=== PATIENT | female | born 1980 | race Caucasian/White ===

== ENCOUNTER 2016-06-20 09:54 | Outpatient (CLI) | payer OTHER ==
[2016-06-20 10:42] LABS: Free T4 (Free Thyroxine) 0.97 ng/dL (0.70-1.48); Thyroid Stimulating Hormone 0.9388 uIU/mL (0.35-4.94)
== END 2016-06-20 09:55 | disposition home or self-care (01) ==
LOC: MADLABBHPM 09:54
PROVIDERS: ATTEND Family Medicine
DX: E05.90 Thyrotoxicosis, unspecified without thyrotoxic crisis or storm (principal)
CPT/HCPCS: 36415; 84439; 84443

== ENCOUNTER 2016-09-12 10:33 | Outpatient (CLI) | payer OTHER ==
--- NOTE | 2016-09-12 12:53 | ULT ---
ABDOMINAL SONOGRAM HISTORY: Upper abdomen pain. FINDINGS: A fold is apparent within the gallbladder. No stones are apparent. There is no gallbladder wall th ickening. The patient was reportedly tender over the gallbladder fossa at the time of the exam. The liver is unremarkable without focal mass or intrahepatic biliary dilatation. The common duct is 0.3 cm in diameter. The spleen and the visualized portions of the abdominal aorta, the IVC, the pa ncreas, and the kidneys have a normal appearance. IMPRESSION: No significant abnormalities are demonstrated. POS: NELLIE
[2016-09-14 22:42] LABS: Chlamydia by PCR Not Detected (NotDetected); GC by PCR Not Detected (NotDetected)
== END 2016-09-12 10:34 | disposition home or self-care (01) ==
LOC: MADLABBHPM 10:33
PROVIDERS: ATTEND Family Medicine
DX: R10.30 Lower abdominal pain, unspecified (principal)
CPT/HCPCS: 36415; 76700; 87480; 87491; 87510; 87591; 87660

== ENCOUNTER 2016-11-14 09:35 | Outpatient (CLI) | payer OTHER ==
[2016-11-14 10:32] LABS: #Eosinphils 0.2 thou/uL (0.0-0.7); #Lymphocytes 1.4 thou/uL (1.20-3.40); #Monocytes 0.4 thou/uL (0.11-0.59); #Neutrophils 5.3 thou/uL (1.40-6.50); %Basophils 0.3 % (0.0-1.0); %Eosinophils 2.6 % (0.0-10.0); %Lymphocytes 18.9 % (21.0-51.0); %Neutrophils 73.1 % (42.0-75.0); Hemoglobin 12.4 g/dL (12.0-16.0); Mean Corpuscular Hemoglobin 28.5 pg (27.0-31.0); Mean Corpuscular Volume 86.3 fl (81.0-99.0); Platelet Count 310 thou/uL (130-400); RBC Distribution Width 13.5 % (11.5-14.5); Red Blood Cell (RBC) Count 4.36 mill/uL (4.20-5.40); White Blood Cell (WBC) Count 7.2 thou/uL (4.8-10.8)
[2016-11-14 11:46] LABS: Hemoglobin A1c 5.2 % (4.0-6.0)
[2016-11-14 13:14] LABS: Free T4 (Free Thyroxine) 0.99 ng/dL (0.70-1.48); Thyroid Stimulating Hormone 1.9799 uIU/mL (0.35-4.94)
--- NOTE | 2016-11-14 13:27 | RAD ---
RADIOGRAPH ABDOMEN ONE VIEW SUPINE: Date: 11-14-16 History: 36-year-old female with epigastric pain. FINDINGS: Bowel gas pattern is normal. Moderate amount of stool in the right hemicolon. No signs of organomega ly. No interval change since 09-12-13. IMPRESSION: Normal bowel gas pattern. POS: PAGE
[2016-11-17 20:11] LABS: H. pylori IgA ABS Less than 9.0 units (0.0-8.9); H. pylori IgG ABS 2.8 U/mL (0.0-0.8); H. pylori IgM ABS Less than 9.0 units (0.0-8.9)
== END 2016-11-14 09:36 | disposition home or self-care (01) ==
LOC: MADLABBHPM 09:35
PROVIDERS: ATTEND Family Medicine
DX: R10.13 Epigastric pain (principal); F32.9 Major depressive disorder, single episode, unspecified; E05.90 Thyrotoxicosis, unspecified without thyrotoxic crisis or storm
CPT/HCPCS: 36415; 74000; 83036; 84439; 84443; 85025

== ENCOUNTER 2017-10-09 16:29 | Outpatient (CLI) | payer OTHER ==
--- NOTE | 2017-10-09 17:27 | RAD ---
TWO VIEWS RIGHT HIP 10/09/17 COMPARISON: None. HISTORY: Right hip pain for one week. FINDINGS: Two views right hip shows no evidence of acute fracture or dislocation. No degenerative changes are s een. No soft tissue swelling is present. IMPRESSION: No evidence of acute osseous abnormality. POS: NELLIE
== END 2017-10-09 16:30 | disposition home or self-care (01) ==
LOC: MADRAD 16:29
PROVIDERS: ATTEND Family Medicine
DX: M25.551 Pain in right hip (principal)

== ENCOUNTER 2019-03-18 07:57 | Emergency (ER) | payer OTHER ==
[2019-03-18] MEDS ORDERED: Sodium Chloride 0.9% 1,000 ML ONE (08:58)
--- NOTE | 2019-03-18 09:09 | RAD ---
XR Chest Pa Lat STANDARD HISTORY: Cough COMPARISON: 10/26/2017 FINDINGS: The heart size is normal. A small granuloma in the left lower lung is again seen. The lungs are well expanded without focal areas of consolidation, pneumothorax or pleural effusions. IMPRESSION: No radiographic evidence of acute cardiopulmonary process.
[2019-03-18] MEDS ORDERED: Albuterol Sulfate 2.5 mg/3 ml Neb ONE (09:19)
[2019-03-18 09:29] LABS: #Basophils 0.1 thou/uL (0.0-0.2); #Eosinphils 0.4 thou/uL (0.0-0.7); #Lymphocytes 1.8 thou/uL (1.20-3.40); #Monocytes 0.4 thou/uL (0.11-0.59); %Basophils 0.5 % (0.0-1.0); %Lymphocytes 14.4 % (21.0-51.0); %Monocytes 3.5 % (0.0-10.0); %Neutrophils 78.7 % (42.0-75.0); Hemoglobin 11.8 g/dL (12.0-16.0); Mean Corpuscular HGB CONC 30.8 g/dL (32.0-36.0); Mean Corpuscular Volume 84.3 fL (78.0-98.0); Mean Platelet Volume 7.3 fL (7.4-10.4); Platelet Count 307 thou/uL (130-400); RBC Distribution Width 12.5 % (11.5-14.5); Red Blood Cell (RBC) Count 4.54 mill/uL (4.20-5.40); White Blood Cell (WBC) Count 12.7 thou/uL (4.8-10.8)
[2019-03-18 09:47] LABS: ALT (SGPT) 15 U/L (8-55); AST (SGOT) 13 U/L (5-34); Albumin 3.7 g/dL (3.5-5.0); Alkaline Phosphatase 67 U/L (40-110); Anion Gap 13 mmol/L (10-20); BUN (Urea Nitrogen) 12 mg/dL (7.0-18.7); Bilirubin, Total 0.4 mg/dL (0.2-1.2); Calc. Creatinine Clearance 0 mL/min (70-130); Calcium 8.7 mg/dL (7.8-10.44); Carbon Dioxide 17 mmol/L (22-29); Chloride 111 mmol/L (98-107); Estimated GFR-MDRD 85; Globulin 3.2 g/dL (2.4-3.5); Glucose 128 mg/dL (70-105); Potassium 3.8 mmol/L (3.5-5.1); Protein, Total 6.9 g/dL (6.0-8.3); Sodium 137 mmol/L (136-145)
[2019-03-18 10:11] LABS: Bilirubin Negative (Negative); Blood, Urine Negative (Negative); Clarity Clear (Clear); Glucose, Urine (Dipstick) Negative (Negative); Leukocyte Negative (Negative); Nitrite Negative (Negative); Protein, Urine (Dipstick) Negative (Neg-Trace); Urobilinogen 0.2 mg/dL (Less than 2)
[2019-03-18 10:17] LABS: Pregnancy Test - Urine (BHCG) Negative (Negative); Pregu Control Background? CLEAR/WHITE (CLR/WHITE); Pregu Control Bar Appear? YES (CONTROL BAR)
== END 2019-03-18 10:50 | disposition home or self-care (01) ==
LOC: MADERS 07:57
DX: J18.9 Pneumonia, unspecified organism (principal); D72.829 Elevated white blood cell count, unspecified; E03.9 Hypothyroidism, unspecified; I10 Essential (primary) hypertension; J45.909 Unspecified asthma, uncomplicated; F41.9 Anxiety disorder, unspecified; F32.9 Major depressive disorder, single episode, unspecified; Z79.899 Other long term (current) drug therapy
CPT/HCPCS: 71046; 80053; 81003; 81025; 83605; 83880; 85025; J7050; J7611

== ENCOUNTER 2023-06-13 21:57 | Emergency (ER) | payer OTHER ==
[2023-06-13] MEDS ORDERED: traMADol HCl 50 MG TAB ONE (23:19)
== END 2023-06-13 23:35 | disposition home or self-care (01) ==
LOC: MADERS 21:57
DX: S83.91XA Sprain of unspecified site of right knee, initial encounter (principal); M17.11 Unilateral primary osteoarthritis, right knee; E11.9 Type 2 diabetes mellitus without complications; I10 Essential (primary) hypertension; E03.9 Hypothyroidism, unspecified; W01.0XXA Fall on same level from slipping, tripping and stumbling without subsequent striking against object, initial encounter; Z79.84 Long term (current) use of oral hypoglycemic drugs; Z79.899 Other long term (current) drug therapy